=== PATIENT | female | born 1945 | race Caucasian/White ===

== ENCOUNTER 2019-08-29 13:40 | Outpatient (CLI) | payer MEDICARE, OTHER | END 2019-08-29 23:59 | disposition home or self-care (01) | LOC: COV 13:40 | PROVIDERS: ATTEND Family Medicine | DX: R05 Cough (principal); R53.83 Other fatigue; J02.9 Acute pharyngitis, unspecified; Z20.828 Contact with and (suspected) exposure to other viral communicable diseases ==